=== PATIENT | female | born 1980 | race Caucasian/White ===

== ENCOUNTER 2017-04-13 18:56 | Emergency (ER) | payer OTHER ==
[~2017-04-13] VITALS: Ht 149.9 cm; Wt 60.4 kg
[2017-04-13] MEDS ORDERED: SODIUM CHLORIDE 0.9% 1,000ML IVBOLUS ONE (19:30)
[2017-04-13 19:46] LABS: HEMOGLOBIN 15.3 g/dL (11.7-16.4); WHITE BLOOD COUNT 9.2 x10^3/uL (3.4-10)
[2017-04-13 19:58] LABS: BLOOD UREA NITROGEN 10 mg/dL (7-18)
[2017-04-13 20:05] LABS: ASPARTATE AMINO TRANSFERASE 17 U/L (15-37)
[2017-04-13] MEDS ORDERED: CEFTRIAXONE PMX 1GM/50ML 50 ML IV ONE (20:30)
[2017-04-13] MEDS ORDERED: CEFTRIAXONE PMX 1GM/50ML 50 ML ONE (20:38)
[2017-04-13 21:25] VITALS: BP 148/87
== END 2017-04-13 21:29 | disposition home or self-care (01) ==
LOC: ED 20:17
DX: N10 Acute pyelonephritis (principal); Z90.49 Acquired absence of other specified parts of digestive tract
CPT/HCPCS: 36415; 80053; 81001; 83690; 84703; 85025; 87086; 96361; 96365; 99284; J0696; J7030